=== PATIENT | male | born 1965 | race Caucasian/White ===

== ENCOUNTER 2024-05-08 17:01 | Emergency (ER) | payer MEDICARE, SELFPAY ==
--- NOTE | 2024-05-08 17:06 | ED.GENMED ---
ED Provider Triage
-
Patient seen by provider in Triage?: Seen in Triage
Attestation: A medical screening examination has been initiated by a qualified medical provider. Based on the assessment performed at this time, it has been determined that an emergent medical condition may exist and the patient has been informed
that further medical evaluation and possible additional diagnostic testing may be needed.
HPI: 59-year-old male presenting to the emergency department for evaluation of persistent URI-like symptoms been ongoing over the last 4 weeks, has been on antibiotics without any relief. Patient immunocompromise disease on medications for RA.
Patient went to urgent care earlier today and was recommended to come to the ER for further evaluation. Notes continuous bilaterally otalgia, ocular discharge and reports that urgent care told him he had bilateral pneumonia. Labs, chest x-ray,
COVID and flu testing ordered.
GENERAL: Alert , in no apparent distress
EYE: No visual abnormalities.
NECK: Trachea midline
ENT: No visible abnormalities.
LUNGS: No acute respiratory distress
NEUROLOGICAL: Alert and oriented
SKIN: Skin intact. No visible changes.
MUSCULOSKELETAL: Moving extremities normally
PSYCH: Normal and appropriate interaction.
This is a medical evaluation conducted in person to initiate diagnostic evaluation and provide initial therapeutics. Please see further documentation by the treating clinician.
Past History
Past History
ED Past Medical History: Other (Post concussion syndrome. , Light sensativity, Depression) and Other (SLE, RA)
ED Past Surgical History: None
Social History
Tobacco: Non-smoker
Alcohol: Daily
Drug: None
Personal: Single
Living: with roommate
ED Attending Note
-
Portions of this chart may have been created with voice recognition software.� Occasional wrong word or��sound alike� substitutions may have occurred due to the inherent limitations of voice recognition software.
Discharge Plan
Departure
Prescriptions:
No Action
ibuprofen [Advil Liqui-Gel] 200 MG capsule
200 mg PO
clonazepam 0.5 MG tablet
0.5 mg PO DAILY
topiramate 25 MG tablet
50 mg PO DAILY
ascorbic acid (vitamin C) [Vitamin C] 500 MG tablet
500 mg PO DAILY
sertraline 25 MG tablet
25 mg PO DAILY
multivitamin with folic acid [Tab-A-Nasra] 1 TABLET tablet
1 tab PO DAILY
Vitamin D
PO DAILY
cephalexin 500 MG capsule
500 mg PO QID Qty: 40 0RF
oxycodone-acetaminophen 5 MG/325 MG tablet
1 tab PO Q4HPRN PRN (Reason: pain) Qty: 20 0RF
Discharge Date and Time
Print Language: CROATIAN
[2024-05-08 17:07] VITALS: BP 161/100
[2024-05-08 17:38] LABS: % Basophils 0.5 % (0-2); % Eosinophils 2.4 % (0-6); % Immature Granulocytes 0.2 % (0-0.5); % Lymphocytes 16.2 % (20.5-51.1); % Monocytes 12.2 % (1.7-9.3); % Neutrophils 68.5 % (42.2-75.2); Absolute Eosinophils 0.2 10^3/uL (0-0.7); Absolute Monocytes 0.8 10^3/uL (0.1-0.6); Absolute Neutrophils 4.3 10^3/uL (1.4-6.5); Hematocrit 43.2 % (39.0-52.0); Hemoglobin 15.3 g/dL (13.0-18.0); Mean Corp Hgb Conc. 35.4 g/dL (33.0-37.0); Mean Corpuscular Hgb 30.7 pg (27.0-31.0); Mean Corpuscular Volume 86.7 fL (80.0-94.0); Mean Platelet Volume 9.5 fL (7.4-10.4); Nucleated Red Blood Cells % 0 % (-); Platelet Count 160 10^3/uL (130-400); Red Blood Cell Count 4.98 10^6/uL (4.70-6.10); Red Cell Dist. Width 13.2 % (11.5-14.5); White Blood Cell Count 6.3 10^3/uL (4.8-10.8)
[2024-05-08 18:11] LABS: Blood Urea Nitrogen 17 mg/dl (9-20); Calcium 9.1 mg/dl (8.4-10.2); Carbon Dioxide 25 mmol/L (22-30); Chloride 100 mmol/L (98-107); Glucose 117 mg/dl (70-99); Potassium 3.8 mmol/L (3.5-5.1); Sodium 140 mmol/L (135-145); eGFR > 60.00
[2024-05-08 18:15] LABS: COVID-19 Antigen Negative (Negative)
[2024-05-08] MEDS: TYLENOL 1000 MG PO (18:26)
[2024-05-08] MEDS: MOTRIN 600 MG PO (18:26)
[2024-05-08 18:27] LABS: Lactic Acid 1.3 mmol/L (0.7-2.0)
[2024-05-08 19:15] VITALS: BP 155/89
[2024-05-08] MEDS: LEVAQUIN 750 MG PO (20:04)
== END 2024-05-08 20:12 | disposition home or self-care (01) ==
LOC: EMR 17:01
PROVIDERS: Physician Assistant Medical; EMERGENCY PHYSICIAN Emergency Medicine; FAMILY PHYSICIAN Internal Medicine
DX: J18.9 Pneumonia, unspecified organism (principal); Z11.52 Encounter for screening for COVID-19; M06.9 Rheumatoid arthritis, unspecified
CPT/HCPCS: 99284; 71046; 80048; 83605; 85025; 87040; 87502; 87811

== ENCOUNTER 2024-08-19 14:49 | Emergency (ER) | payer MEDICARE, SELFPAY ==
[2024-08-19 14:52] VITALS: BP 132/98
--- NOTE | 2024-08-19 16:31 | ED.GENMED ---
History of Present Illness
General
Chief Complaint: Musculo-Skeletal Complaint
Source: patient
Exam Limitations: none
Time Seen by Provider: 08/19/24 16:16
History of Present Illness
History of Present Illness:
59yoM with a history of rheumatoid arthritis presenting for evaluation of left back and leg pain. Symptoms began 3 days ago. He was having some minor low back pain 4 days ago and went to a massage therapist. He states the therapist was standing
on his back and left leg. He started to have severe pain the following day. He was seen at urgent care and was diagnosed with sciatica. He was given a steroid injection and started on a course of prednisone which he is still taking. He is not
having any relief so came to the ED. Pain is worse with movement and weight bearing. He is also having some paresthesias in the leg. No fevers, difficulty urinating, incontinence, saddle anesthesia. No prior history of malignancy or IV drug use.
He admits to being under a lot of stress recently and his mother's is scheduled for this week. He takes Celebrex and Lyrica for his RA pain.
Past History
Past History
ED Past Medical History: Other (Post concussion syndrome. , Light sensativity, Depression) and Other (SLE, RA)
ED Past Surgical History: None
Social History
Tobacco: Non-smoker
Alcohol: Daily
Drug: None
Personal: Single
Living: with roommate
Phy Exam
General Physical Exam
General Presentation: well appearing
General Skin: warm and dry
General Habitus: normal
General Mental: alert
ENT Exam
ENT Exam: normocephalic
Neurological Exam
Neurological Exam: alert
Ailey Coma Scale
Eye Opening: Spontaneous
Verbal Response: Oriented
Motor Response: Obeys Commands
GCS Total Score: 15
Musculoskeletal Exam
Musculoskeletal Exam: other (+L lumbar tenderness. No skin changes. ROM of L hip and knee intact. No pitting edema or skin changes to extremity. 2+ DP pulse and sensation intact.)
Skin Exam
Skin Exam: normal color and warm/dry
Psychiatric Exam
Psychiatric Exam: normal mood/affect
Course
Orders/Labs/Results
Orders:
Orders
08/19/24 16:28
Ketorolac [Toradol] 30 mg IM NOW STA
Lidocaine [Lidocaine 4% Patch] 1 patch TOPICAL NOW STA
Apply Lidocaine patch(s) to:: low back
diazePAM [Valium Injection] 10 mg IM NOW STA
CR Lumbar Spine Comp Min 4 Vw* Urgent
Comment:
Reason For Exam: low back pain
Venous Doppler Lwr Ext Left [US Periph Venous LOWER Ext LT] Urgent
Comment:
Reason For Exam: L leg pain
Vital Signs
Initial and Last Documented VS:
Initial Vital Signs
Temp Pulse Resp BP Pulse Ox
98.5 F 79 18 132/98 98
08/19/24 14:52 08/19/24 14:52 08/19/24 14:52 08/19/24 14:52 08/19/24 14:52
Last Documented Vital Signs
Temp Pulse Resp BP Pulse Ox
98.5 F 79 18 132/98 98
08/19/24 14:52 08/19/24 14:52 08/19/24 14:52 08/19/24 14:52 08/19/24 14:52
MDM/Problems Addressed
Differential Diagnosis Includes:
59yoM here with L lower back/buttock pain radiating down posterior leg x 3 days. On steroids without improvement. No red flags in history including no fevers, saddle anesthesia, incontinence, hx of malignancy. VSS. There is reproducible tenderness
in the left lumbar region. LLE is neurovascularly intact with palpable DP pulse. Differential diagnosis includes but is not limited to: Sciatica, lumbar radiculopathy, less likely DVT
Initial plan: Check lumbar spine x-rays and venous duplex. IM Toradol, Valium, and lidocaine patch for symptoms.
*Critical Care Note
Total Time (30-74mins, 75-104mins- exclusive of procedures): Not Applicable
Update Note
Update Note:
Venous duplex negative for DVT. Lumbar spine x-rays negative for fracture per my interpretation. Presentation consistent with sciatica. Prescriptions provided for naproxen and Robaxin. Advised follow-up with PCP and orthopedics. Patient
discharged in stable condition
ED Attending Note
-
Portions of this chart may have been created with voice recognition software.� Occasional wrong word or��sound alike� substitutions may have occurred due to the inherent limitations of voice recognition software.
Discharge Plan
Departure
Patient Disposition: Home (Routine Discharge)
Date of Disposition: 08/19/24
Time of Disposition: 18:11
Patient with high blood pressure during this ER visit?: No
Discharge Problem:
Sciatica of right side
Instructions: Sciatica - ED discharge instructions
Prescriptions:
New
naproxen 500 mg tablet
500 mg PO BID PRN (Reason: Pain) Qty: 20 0RF
methocarbamol 750 mg tablet
750 mg PO Q8H PRN (Reason: muscle spasms) Qty: 20 0RF
No Action
ibuprofen [Advil Liqui-Gel] 200 MG capsule
200 mg PO
clonazepam 0.5 MG tablet
0.5 mg PO DAILY
topiramate 25 MG tablet
50 mg PO DAILY
ascorbic acid (vitamin C) [Vitamin C] 500 MG tablet
500 mg PO DAILY
sertraline 25 MG tablet
25 mg PO DAILY
multivitamin with folic acid [Tab-A-Nasra] 1 TABLET tablet
1 tab PO DAILY
Vitamin D
PO DAILY
cephalexin 500 MG capsule
500 mg PO QID Qty: 40 0RF
oxycodone-acetaminophen 5 MG/325 MG tablet
1 tab PO Q4HPRN PRN (Reason: pain) Qty: 20 0RF
levofloxacin 750 mg tablet
750 mg PO DAILY 7 Days Qty: 7 0RF
albuterol sulfate 90 mcg/actuation HFA aerosol inhaler
2 puff inhalation QID PRN (Reason: shortness of breath or wheezing) Qty: 8.5 0RF
triamcinolone acetonide [Nasacort] 55 mcg aerosol,spray
2 spray intranasal DAILY Qty: 16.9 0RF
Referrals:
Andrey Bernal MD [Family Provider] -
Janes Jay MD [Active] -
Activity Restrictions/Additional Instructions:
Apply heat to affected area. Use lidocaine patches daily (12 hours on, 12 hours off). Take naproxen as prescribed. Take Robaxin (muscle relaxer) as needed for muscle spasms.
Please follow-up with your family doctor and orthopedics. Return to the ER with any new or worsening symptoms.
Interventions
Interventions:
*Risk Screen - Suicide Last Done: 08/19/24 14:52
*General Assessment Last Done: 08/19/24 18:38
*Neglect/Abuse Screening Last Done: 08/19/24 14:52
*ED- Fall Risk Assessment Last Done: 08/19/24 18:38
*ED COVID-19 Vaccine History Last Done: 08/19/24 14:52
*Nursing Disposition Last Done: 08/19/24 18:38
ED-Musculoskeletal Assessment Last Done: 08/19/24 18:38
Discharge Date and Time
Discharge Date/Time: 08/19/24 18:39
Print Language: GERMAN
[2024-08-19] MEDS: VALIUM INJECTION 10 MG IM (17:33)
[2024-08-19] MEDS: LIDOCAINE 4% PATCH 1 PATCH TOPICAL (17:33)
[2024-08-19] MEDS: TORADOL 30 MG IM (17:33)
== END 2024-08-19 18:39 | disposition home or self-care (01) ==
LOC: EMR 14:49
PROVIDERS: EMERGENCY PHYSICIAN Emergency Medicine; FAMILY PHYSICIAN Internal Medicine
DX: M54.31 Sciatica, right side (principal); M79.605 Pain in left leg; M06.9 Rheumatoid arthritis, unspecified; F32.A Depression, unspecified; M32.9 Systemic lupus erythematosus, unspecified
CPT/HCPCS: 99284; 96372; 72110; 93971